=== PATIENT | female | born 1980 | race Hispanic/Latino ===

== ENCOUNTER 2025-04-20 14:10 | Emergency (ER) | payer BC, OTHER ==
[2025-04-20] MEDS ORDERED: Acetaminophen 500 MG TAB ONE (16:20)
[2025-04-20] MEDS ORDERED: HYDROcodone/Acetaminophen 10/325 mg Tablet ONE (16:26)
== END 2025-04-20 16:38 | disposition home or self-care (01) ==
LOC: ERS 14:10
DX: S16.1XXA Strain of muscle, fascia and tendon at neck level, initial encounter (principal); I10 Essential (primary) hypertension; V89.2XXA Person injured in unspecified motor-vehicle accident, traffic, initial encounter
CPT/HCPCS: 70450; 71045; 72125